=== PATIENT | female | born 1955 | race Caucasian/White ===

== ENCOUNTER 2017-05-13 12:41 | Emergency (ER) | payer BC, MEDICAID ==
[~2017-05-13] VITALS: Ht 162.6 cm; Wt 86.2 kg
[2017-05-13 12:46] VITALS: BP_SYST 135
[2017-05-13 15:50] VITALS: BP_SYST 128
== END 2017-05-13 15:50 | disposition home or self-care (01) ==
LOC: SED 12:41
DX: L72.8 Other follicular cysts of the skin and subcutaneous tissue (principal)
CPT/HCPCS: 99283

== ENCOUNTER 2017-05-27 08:52 | Emergency (ER) | payer MEDICAID ==
[~2017-05-27] VITALS: Ht 162.6 cm; Wt 86.2 kg
[2017-05-27 08:58] VITALS: BP_SYST 140
--- NOTE | 2017-05-27 09:02 | NUR ---
Ambulatory to bed 7
--- NOTE | 2017-05-27 09:10 | NUR ---
Placed on monitoring specialist, blood pressure machine and pulse oximeter. To gown for exam. Side rails up.
--- NOTE | 2017-05-27 09:10 | NUR ---
ER at bedside examining patient.
--- NOTE | 2017-05-27 09:21 | NUR ---
# 20 gauge angiocath placed to RAC. Use of asceptic technique. Opsite placed over site. Blood return noted. Blood for lab drawn from site. Flushed with 10 cc of normal saline. No evidence of infiltration noted. Patient tolerated well.
--- NOTE | 2017-05-27 09:28 | NUR ---
PT drove here from work,c/o dizzy,room spinning for a couple of days,got worse today. pt AAOX4,no focal neuro feficit.speech is clear,equal facial symmetry. body shaking from parkinson's disease.no tinnitus.no distress noted.
[2017-05-27 09:29] LABS: BASOPHILS % (AUTO) 0.6 % (0.0-2.0); EOSINOPHILS # (AUTO) 0.1 K/uL (0.0-0.4); EOSINOPHILS % (AUTO) 2.6 % (0.0-4.0); HEMATOCRIT 43.9 % (36-48); HEMOGLOBIN 14.6 g/dL (12.0-16.0); LYMPHOCYTES # (AUTO) 0.8 K/uL (1.0-5.5); LYMPHOCYTES % (AUTO) 15.3 % (20.5-51.5); MEAN CORPUSCULAR HEMOGLOBIN 31 pg (27-31); MEAN CORPUSCULAR HGB CONC 33 % (32-36); MEAN CORPUSCULAR VOLUME 92 fL (79.0-98.0); MONOCYTES # (AUTO) 0.6 K/uL (0.0-1.0); MONOCYTES % (AUTO) 11.8 % (1.7-9.3); NEUTROPHILS % (AUTO) 69.7 % (40.0-70.0); PLATELET COUNT (AUTO) 260 K/uL (130-430); RED BLOOD CELL COUNT(AUTO) 4.75 MIL/uL (4.2-6.2); RED CELL DISTRIBUTION WIDTH 11.8 % (9.0-15.0); WHITE BLOOD COUNT (AUTO) 5.5 K/uL (4.8-10.8)
[2017-05-27 09:34] LABS: CALCIUM 9.1 mg/dL (8.4-11.0); CREATININE 0.82 mg/dL (0.55-1.30); POTASSIUM 4.3 mmol/L (3.5-5.1)
[2017-05-27 09:39] LABS: ALBUMIN 3.8 g/dL (3.4-4.8); TOTAL BILIRUBIN 0.3 mg/dL (0.0-1.0); TOTAL PROTEIN, SERUM 7.2 g/dL (6.4-8.3)
--- NOTE | 2017-05-27 10:08 | NUR ---
transport to ct scan via wheelchair.
--- NOTE | 2017-05-27 10:20 | NUR ---
returned back from ct scan.no change of condition
--- NOTE | 2017-05-27 10:51 | NUR ---
resting in bed,no distress.
--- NOTE | 2017-05-27 11:18 | NUR ---
Patient given written and verbal discharge instructions and verbalizes understanding. ER MD discussed with patient the results and treatment provided. Patient in stable condition. ID arm band removed. IV catheter removed intact and dressing applied, no active bleeding. Rx of antivert given. Patient educated on pain management and to follow up with PMD. Pain Scale 0. Opportunity for questions provided and answered.
[2017-05-27 11:19] VITALS: BP_SYST 113
== END 2017-05-27 11:18 | disposition home or self-care (01) ==
LOC: SED 08:52
DX: H81.10 Benign paroxysmal vertigo, unspecified ear (principal)
CPT/HCPCS: 36415; 70450-TC; 80053; 85025; 93005; 99285

== ENCOUNTER 2019-11-27 12:08 | Emergency (ER) | payer MEDICAID ==
[~2019-11-27] VITALS: Ht 165.1 cm; Wt 75.3 kg
--- NOTE | 2019-11-27 12:20 | NUR ---
Patient to ER bed 1 to gown for evaluation. Side rails up.
--- NOTE | 2019-11-27 12:22 | NUR ---
Pt AAOx4 presents to ED via ALS s/p syncopal episode ~ 30 min ago while sitting getting nails done. #18gauge IV placed to L FA, given 500mL NS bolus en route; Denies n/v/d/cp/back pain/fever. Skin pink dry and warm, breathing even and unlabored. No other injuries/complaints perp t/noted. Will continue to monitor.
--- NOTE | 2019-11-27 12:23 | NUR ---
ER Dr. Royal at bedside examining patient.
[2019-11-27 12:25] VITALS: BP_SYST 99
--- NOTE | 2019-11-27 12:25 | NUR ---
Patient transported to radiology via GURNEY, accompanied by RAD STAFF.
--- NOTE | 2019-11-27 12:41 | NUR ---
Radiology at bedside for CXR
[2019-11-27 13:11] LABS: BASOPHILS % (AUTO) 0.5 % (0.0-2.0); EOSINOPHILS # (AUTO) 0.1 K/uL (0.0-0.4); EOSINOPHILS % (AUTO) 1.4 % (0.0-4.0); HEMATOCRIT 40.6 % (36-48); HEMOGLOBIN 13.4 g/dL (12.0-16.0); LYMPHOCYTES # (AUTO) 0.7 K/uL (1.0-5.5); LYMPHOCYTES % (AUTO) 12.1 % (20.5-51.5); MEAN CORPUSCULAR HEMOGLOBIN 31 pg (27-31); MEAN CORPUSCULAR HGB CONC 33 % (32-36); MEAN CORPUSCULAR VOLUME 95 fL (79.0-98.0); MONOCYTES # (AUTO) 0.6 K/uL (0.0-1.0); MONOCYTES % (AUTO) 9.6 % (1.7-9.3); NEUTROPHILS # (AUTO) 4.5 K/uL (1.8-7.7); NEUTROPHILS % (AUTO) 76.4 % (40.0-70.0); PLATELET COUNT (AUTO) 232 K/uL (130-430); RED BLOOD CELL COUNT(AUTO) 4.28 MIL/uL (4.2-6.2); RED CELL DISTRIBUTION WIDTH 13.8 % (9.0-15.0); WHITE BLOOD COUNT (AUTO) 5.8 K/uL (4.8-10.8)
[2019-11-27 13:26] LABS: CALCIUM 8.4 mg/dL (8.4-11.0); CREATININE 0.78 mg/dL (0.55-1.30)
[2019-11-27 13:32] LABS: PROTHROMBIN TIME 9.7 SECS (9.5-12.5)
[2019-11-27 13:37] LABS: ALBUMIN 3.3 g/dL (3.4-4.8); TOTAL BILIRUBIN 0.5 mg/dL (0.0-1.0)
[2019-11-27 14:53] LABS: BILIRUBIN,URINE NEGATIVE (NEGATIVE); BLOOD, URINE NEGATIVE (NEGATIVE); CLARITY/URINE CLEAR (CLEAR); COLOR,URINE YELLOW (YELLOW); GLUCOSE,URINE NEGATIVE (NEGATIVE); KETONES,URINE NEGATIVE (NEGATIVE); LEUKOCYTE ESTERASE ,URINE NEGATIVE (NEGATIVE); NITRITE, URINE NEGATIVE (NEGATIVE); PROTEIN URINE NEGATIVE (NEGATIVE); UROBILINOGEN,URINE 0.2 (0.2-1.0)
--- NOTE | 2019-11-27 14:56 | NUR ---
ER Dr. Royal at bedside for reevaluation.
--- NOTE | 2019-11-27 15:00 | NUR ---
aPatient does not wish to proceed with medical care recommended by Dr. Royal. Patient given information related to possible complications, up to and including , which could occur as a result of leaving hospital at this time. Patient verbalizes understanding of risks involved leaving against medical advice. Patient has signed AMA form.
== END 2019-11-27 15:00 | disposition left against medical advice (07) ==
LOC: SED 12:08
DX: R55 Syncope and collapse (principal)
CPT/HCPCS: 36415; 70450-TC; 71045; 80053; 81003; 83605; 84484; 85025; 85610-TC; 85730-TC; 87040-TC; 87086; 93005; 99284

== ENCOUNTER 2020-07-28 11:04 | Emergency (ER) | payer MEDICAID ==
[~2020-07-28] VITALS: Ht 165.1 cm; Wt 72.1 kg
[2020-07-28 11:24] VITALS: BP_SYST 127
--- NOTE | 2020-07-28 11:24 | NUR ---
Patient to ER bed 04 to gown for evaluation. Side rails up. Report given to SIMRAN VILLA.
--- NOTE | 2020-07-28 11:25 | NUR ---
Pt walked in to ER with c/o abcess to R buttock x4 days. Reports pain 6/10. V/S stable, pt is afebrile. Currently resting in bed, will continue to monitor.
--- NOTE | 2020-07-28 12:30 | NUR ---
ER Dr. Mondragon at bedside examining patient.
[2020-07-28] MEDS ORDERED: KETOROLAC TROMETHAMINE 60 MG/2 ML VIAL IM ONE (12:45)
[2020-07-28 12:56] VITALS: BP_SYST 127
--- NOTE | 2020-07-28 12:57 | NUR ---
Patient given written and verbal discharge instructions and verbalizes understanding. ER MD discussed with patient the results and treatment provided. Patient in stable condition. ID arm band removed. Rx of Motrin, [place], Keflex and Bactrim given. Patient educated on pain management and to follow up with PMD. Pain Scale 3. Opportunity for questions provided and answered. Medication side effect fact sheet provided.
== END 2020-07-28 12:56 | disposition home or self-care (01) ==
LOC: SED 11:04
DX: L02.31 Cutaneous abscess of buttock (principal)
CPT/HCPCS: 96372; 99283; J1885